=== PATIENT | female | born 1965 ===

== ENCOUNTER → 2017-07-17 | Outpatient (CLI) | payer OTHER ==
[~2017-07-17] VITALS: Ht 152.4 cm; Wt 56.7 kg
[~2017-07-17] MED LIST: BIAXIN500 MG PO; CLARITHROMYCIN500 MG PO; DYMISTA NASAL S23 GM NS; FLONASE16 GM NASAL; MEDROL4 MG PO; TENCON TABLET1 TAB PO; [UNRECOGNIZED DRUG - OTHER] IJ
== END | disposition home or self-care (01) ==
LOC: OFIC 805 09:26
DX: J31.0 Chronic rhinitis (principal); J32.8 Other chronic sinusitis; J34.3 Hypertrophy of nasal turbinates

== ENCOUNTER → 2017-12-13 06:11 | Outpatient (CLI) | payer OTHER | END | disposition home or self-care (01) | LOC: LAB 06:11 | DX: N95.1 Menopausal and female climacteric states (principal); E04.1 Nontoxic single thyroid nodule; E78.2 Mixed hyperlipidemia; E55.9 Vitamin D deficiency, unspecified; E28.39 Other primary ovarian failure ==

== ENCOUNTER → 2018-03-10 13:49 | Outpatient (CLI) | payer OTHER | END | disposition home or self-care (01) | LOC: LAB 13:49 | DX: Z11.3 Encounter for screening for infections with a predominantly sexual mode of transmission (principal) ==

== ENCOUNTER 2018-03-19 11:20 | Outpatient (CLI) | payer OTHER ==
[~2018-03-19] VITALS: Ht 152.4 cm; Wt 56.7 kg
[2018-03-19] MEDS ORDERED: [UNRECOGNIZED DRUG - OTHER] IJ (11:54)
[2018-03-19] MEDS ORDERED: ZYRTEC10 MG PO (11:54)
[2018-03-19] MEDS ORDERED: FLONASE16 GM NASAL (11:54)
[2018-03-19] MEDS ORDERED: CIPRO500 MG PO (11:54)
== END 2018-03-19 11:40 | disposition home or self-care (01) ==
LOC: OFIC 805 11:20
DX: J31.0 Chronic rhinitis (principal); J32.8 Other chronic sinusitis; J34.3 Hypertrophy of nasal turbinates

== ENCOUNTER 2018-11-27 17:02 | Outpatient (CLI) | payer OTHER ==
[~2018-11-27 17:02] MED LIST changes: +CIPRO500 MG PO; +ZYRTEC10 MG PO
== END 2018-11-27 17:56 | disposition home or self-care (01) ==
LOC: LAB 17:02
DX: J11.1 Influenza due to unidentified influenza virus with other respiratory manifestations (principal)

== ENCOUNTER 2019-01-21 07:07 | Outpatient (CLI) | payer OTHER | END 2019-01-21 07:17 | disposition home or self-care (01) | LOC: LAB 07:07 | DX: E04.1 Nontoxic single thyroid nodule (principal); E28.310 Symptomatic premature menopause; E55.9 Vitamin D deficiency, unspecified; E78.00 Pure hypercholesterolemia, unspecified ==

== ENCOUNTER → 2019-12-04 06:44 | Outpatient (CLI) | payer OTHER | END | disposition home or self-care (01) | LOC: LAB 06:44 | PROVIDERS: ATTEND Obstetrics & Gynecology | DX: N95.1 Menopausal and female climacteric states (principal); E28.39 Other primary ovarian failure; E04.1 Nontoxic single thyroid nodule; E55.9 Vitamin D deficiency, unspecified; E78.00 Pure hypercholesterolemia, unspecified ==

== ENCOUNTER 2020-02-11 06:39 | Outpatient (CLI) | payer OTHER | END 2020-02-11 06:53 | disposition home or self-care (01) | LOC: LAB 06:39 | PROVIDERS: ATTEND Internal Medicine | DX: R10.84 Generalized abdominal pain (principal); E03.8 Other specified hypothyroidism; E78.49 Other hyperlipidemia ==

== ENCOUNTER 2020-02-12 10:48 | Outpatient (CLI) | payer OTHER | END 2020-02-12 11:25 | disposition home or self-care (01) | LOC: NUCLEAR 10:48 | PROVIDERS: ATTEND Internal Medicine | DX: I48.0 Paroxysmal atrial fibrillation (principal) ==

== ENCOUNTER → 2020-12-30 06:35 | Outpatient (CLI) | payer OTHER | END | disposition home or self-care (01) | LOC: LAB 06:35 | PROVIDERS: ATTEND Internal Medicine | DX: D64.89 Other specified anemias (principal); R10.84 Generalized abdominal pain; E03.8 Other specified hypothyroidism; E78.49 Other hyperlipidemia; E55.9 Vitamin D deficiency, unspecified; R80.8 Other proteinuria; E11.9 Type 2 diabetes mellitus without complications ==

== ENCOUNTER 2021-04-18 14:25 | Outpatient (CLI) | payer OTHER | END 2021-04-18 14:35 | disposition home or self-care (01) | LOC: RAD 14:25 | PROVIDERS: ATTEND Orthopaedic Surgery | DX: M25.562 Pain in left knee (principal); M25.462 Effusion, left knee | CPT/HCPCS: 73721 ==

== ENCOUNTER 2021-11-02 14:20 | Outpatient (CLI) | payer OTHER | END 2021-11-02 14:29 | disposition home or self-care (01) | LOC: MAMO-SONO 14:20 | PROVIDERS: ATTEND Obstetrics & Gynecology | DX: Z12.31 Encounter for screening mammogram for malignant neoplasm of breast (principal); N60.11 Diffuse cystic mastopathy of right breast; N60.12 Diffuse cystic mastopathy of left breast ==

== ENCOUNTER 2021-12-06 09:00 | Outpatient (CLI) | payer OTHER | END 2021-12-06 10:30 | disposition home or self-care (01) | LOC: ASH CLINIC 09:00 | PROVIDERS: ATTEND Internal Medicine | DX: U07.1 COVID-19 (principal) ==

== ENCOUNTER 2023-07-26 09:43 | Outpatient (CLI) | payer OTHER ==
[~2023-07-26 09:43] MED LIST changes: +METAXALONE800 MG PO; +PREDNISONE10 MG PO
== END 2023-07-26 09:45 | disposition home or self-care (01) ==
LOC: SONOGRAMA 09:43
PROVIDERS: ATTEND Obstetrics & Gynecology
DX: N60.11 Diffuse cystic mastopathy of right breast (principal); N60.12 Diffuse cystic mastopathy of left breast; Z12.31 Encounter for screening mammogram for malignant neoplasm of breast

== ENCOUNTER 2024-02-27 09:38 | Outpatient (CLI) | payer OTHER | END 2024-02-27 11:31 | disposition home or self-care (01) | LOC: LAB 09:38 | DX: B19.10 Unspecified viral hepatitis B without hepatic coma (principal) ==

== ENCOUNTER 2024-04-23 01:30 | Outpatient (CLI) | payer OTHER | END 2024-04-23 02:00 | disposition home or self-care (01) | LOC: PPH VACUNA 01:30 | PROVIDERS: ATTEND Emergency Medicine Pediatric Emergency Medicine | DX: Z23 Encounter for immunization (principal) ==

== ENCOUNTER 2024-07-08 06:28 | Outpatient (CLI) | payer OTHER ==
[2024-07-08 07:51] LABS: HEMATOCRIT 38.9 % (36.0-45.00); HEMOGLOBIN 13.7 g/dL (12.0-15.00); MEAN CELL VOLUME 89.9 fL (80.00-100.00); MEAN CORPUSCULAR HEMOGLOBIN 31.6 pg (27.00-32.0); MEAN CORPUSCULAR HGB CONC 35.1 g/dl (32.0-36.0); PLATELET COUNT 300 K/uL (150-450); RED BLOOD COUNT 4.33 M/uL (4.00-6.00); RED CELL DISTRIBUTION WIDTH 12.3 % (11.5-14.5)
[2024-07-08 09:00] LABS: PH,URINE 6.5 (5.0-8.0); URINE APPEARANCE Clear; URINE BILIRRUBIN Negative (NEGATIVE); URINE BLOOD Negative; URINE COLOR Yellow; URINE GLUCOSE Negative (NEGATIVE); URINE KETONE Trace (NEGATIVE); URINE LEUKOCYTE Negative; URINE NITRATE Negative; URINE PROTEIN Negative (NEGATIVE); URINE UROBILINOGEN 0.2 E.U./dl
[2024-07-08 09:05] LABS: URINE BACTERIA 625.3 uL (0.0-1933); URINE EPITHELIAL CELLS 12.3 uL (0.0-38.8); URINE RBC 23.1 uL (0.0-20.8); URINE WBC 5.5 uL (0.0-23.2)
[2024-07-08 09:10] LABS: URINE CAST 0.14 uL (0.0-1.40)
[2024-07-08 09:13] LABS: ALBUMIN 3.8 gm/dL (3.4-5.0); BILIRUBIN TOTAL 0.6 mg/dL (0.3-1.2); CALCIUM 8.3 mg/dL (8.5-10.1); CREATININE SERUM 0.5 mg/dL (0.55-1.02); FREE TRIODOTIRONINE 2.94 pg/ml (2.18-3.98); GFR 125.85; GLOBULINA 2.8 G/DL (2.4-3.5); POTASSIUM 4.25 mEq/L (3.5-5.1); T4 TOTAL 7.37 UG/DL (4.8-13.9); TOTAL PROTEIN 6.6 gm/dL (6.4-8.2); TSH 2.48 uIU/mL (0.358-3.74)
[2024-07-08 12:12] LABS: VITAMIN D3 25 HYDROXY 32.89 ng/ml (30-120)
[2024-07-09 12:38] LABS: ANTI THYROID PEROXIDASE < 9 IU/mL (0-34); ESTRADIOL SERUM 53.2 pg/mL (0.0-54.7); FOLLICLE STIMULATING HORMONE 26.6 mIU/mL (25.8-134.8)
== END 2024-07-08 06:40 | disposition home or self-care (01) ==
LOC: LAB 06:28
PROVIDERS: ATTEND Obstetrics & Gynecology
DX: N95.1 Menopausal and female climacteric states (principal); E04.1 Nontoxic single thyroid nodule; E55.9 Vitamin D deficiency, unspecified; E78.00 Pure hypercholesterolemia, unspecified; N39.0 Urinary tract infection, site not specified; R19.5 Other fecal abnormalities; R97.8 Other abnormal tumor markers; E11.9 Type 2 diabetes mellitus without complications; K76.9 Liver disease, unspecified

== ENCOUNTER 2024-10-23 06:35 | Outpatient (CLI) | payer OTHER ==
[2024-10-23 07:42] LABS: HEMATOCRIT 40.5 % (36.0-45.00); MEAN CELL VOLUME 90.1 fL (80.00-100.00); MEAN CORPUSCULAR HEMOGLOBIN 31.2 pg (27.00-32.0); MEAN CORPUSCULAR HGB CONC 34.6 g/dl (32.0-36.0); PLATELET COUNT 326 K/uL (150-450); RED CELL DISTRIBUTION WIDTH 12.3 % (11.5-14.5)
[2024-10-23 08:08] LABS: ALBUMIN 4.2 gm/dL (3.4-5.0); BILIRUBIN TOTAL 0.7 mg/dL (0.3-1.2); CALCIUM 8.8 mg/dL (8.5-10.1); CREATININE SERUM 0.59 mg/dL (0.55-1.02); GFR 103.62; GLOBULINA 2.8 G/DL (2.4-3.5); POTASSIUM 4.23 mEq/L (3.5-5.1)
[2024-10-23 13:17] LABS: PH,URINE 7.5 (5.0-8.0); URINE APPEARANCE Clear; URINE BILIRRUBIN Negative (NEGATIVE); URINE BLOOD Negative; URINE COLOR Yellow; URINE GLUCOSE Negative (NEGATIVE); URINE KETONE Negative (NEGATIVE); URINE LEUKOCYTE Negative; URINE NITRATE Negative; URINE PROTEIN Negative (NEGATIVE); URINE UROBILINOGEN 0.2 E.U./dl
[2024-10-23 13:18] LABS: URINE BACTERIA 6.1 uL (0.0-1933)
[2024-10-23 13:19] LABS: URINE EPITHELIAL CELLS 0.3 uL (0.0-38.8); URINE RBC 1.1 uL (0.0-20.8); URINE WBC 0.4 uL (0.0-23.2)
== END 2024-10-23 06:44 | disposition home or self-care (01) ==
LOC: LAB 06:35
PROVIDERS: ATTEND Internal Medicine
DX: E03.9 Hypothyroidism, unspecified (principal); N39.0 Urinary tract infection, site not specified; E78.9 Disorder of lipoprotein metabolism, unspecified